=== PATIENT | female | born 1935 | race Caucasian/White ===

== ENCOUNTER 2019-05-26 07:10 | Day surgery (SDC) | payer MEDICARE ==
[2019-05-25 16:06] LABS: BASOPHILS # (AUTO) 0.1 X10'3 (0-0.2); BASOPHILS % (AUTO) 0.6 % (0-1); EOSINOPHILS # (AUTO) 0.1 X10'3 (0-0.9); EOSINOPHILS % (AUTO) 1.2 % (0-6); HEMATOCRIT 30.6 % (35.0-45.0); HEMOGLOBIN 9.9 g/dl (12.0-16.0); LYMPHOCYTES # (AUTO) 0.9 X10'3 (1.1-4.8); LYMPHOCYTES % (AUTO) 10.6 % (21-51); MEAN CORPUSCULAR HEMOGLOBIN 30.3 PG (27.0-31.0); MEAN CORPUSCULAR HGB CONC 32.4 g/dL (33.0-36.5); MEAN CORPUSCULAR VOLUME 93.5 FL (78-98); MEAN PLATELET VOLUME 9.3 FL (7.4-10.4); MONOCYTES # (AUTO) 0.9 X10'3 (0-0.9); MONOCYTES % (AUTO) 10.8 % (2-12); NEUTROPHILS # (AUTO) 6.3 X10'3 (1.8-7.7); NEUTROPHILS % (AUTO) 76.8 % (42-75); PLATELET COUNT 304 X10'3 (140-440); RED BLOOD COUNT 3.28 X10'6 (4.20-5.60); RED CELL DISTRIBUTION WIDTH 16.1 % (11.5-14.5); WHITE BLOOD COUNT 8.1 X10'3 (4.5-11.0)
[2019-05-25 16:13] LABS: ALBUMIN 2.9 G/DL (3.4-5.0); ANION GAP 1 (8-16); BLOOD UREA NITROGEN 22 MG/DL (7-18); BUN/CREATININE RATIO 16.1 (6.6-38.0); CALCIUM 8.6 MG/DL (8.5-10.1); CHLORIDE 104 MMOL/L (99-107); CREATININE 1.37 MG/DL (0.40-0.90); GLUCOSE 86 MG/DL (70-104); POTASSIUM 4.1 MMOL/L (3.5-5.1); SODIUM 143 MMOL/L (135-145); TOTAL CARBON DIOXIDE 37.7 MMOL/L (24-32); eGFR 37 ML/MIN
[~2019-05-26] VITALS: Ht 165.1 cm; Wt 106.8 kg
[~2019-05-26 07:10] MED LIST: ALBU8.5H8 INH; ASPI-611 PO; FOLI1TAB50 PO; LISI40TA4 PO; METO-411 PO; OMEG500C3 PO; OMEP40CA13 PO; OXYB5TAB16 PO; PARO10TA4 PO; TRIA1CAP6 PO
[2019-05-26] MEDS ORDERED: diphenhydrAMINE 25mg capsule PO ONE (07:45)
[2019-05-26] MEDS ORDERED: morphine 10mg/ml inj. IV ONE (07:45)
[2019-05-26] MEDS ORDERED: MIDAZolam 1mg/ml 10ml vial IV ONE (07:45)
[2019-05-26] MEDS ORDERED: LORazepam 0.5 MG tablet PO ONE (07:45)
[2019-05-26] MEDS ORDERED: normal saline 1000ml 1,000 ML IV SCH (07:45)
[2019-05-26] MEDS ORDERED: amiodarone in dextrose, iso-osm 150mg/100ml bag IV ONE (07:45)
[2019-05-26] MEDS ORDERED: atropine 0.1mg/ml 10ml syringe IV ONE (07:45)
== END 2019-05-26 09:50 | disposition home or self-care (01) ==
LOC: SSTAY O 07:10
PROVIDERS: ATTEND Internal Medicine Cardiovascular Disease
DX: I48.0 Paroxysmal atrial fibrillation (principal); Z53.8 Procedure and treatment not carried out for other reasons; I13.0 Hypertensive heart and chronic kidney disease with heart failure and stage 1 through stage 4 chronic kidney disease, or unspecified chronic kidney disease; I50.9 Heart failure, unspecified; N18.9 Chronic kidney disease, unspecified; J44.9 Chronic obstructive pulmonary disease, unspecified; G47.30 Sleep apnea, unspecified; I35.8 Other nonrheumatic aortic valve disorders; E66.3 Overweight; Z68.39 Body mass index [BMI] 39.0-39.9, adult; Z79.899 Other long term (current) drug therapy; Z98.890 Other specified postprocedural states; Z72.89 Other problems related to lifestyle; Z88.0 Allergy status to penicillin; Z88.8 Allergy status to other drugs, medicaments and biological substances; Z88.2 Allergy status to sulfonamides
CPT/HCPCS: 36415; 80048; 85025; 85610; 93005

== ENCOUNTER 2022-09-17 06:06 | Day surgery (SDC) | payer MEDICARE ==
[2022-09-16 13:04] LABS: LYMPHOCYTES # (AUTO) 1.1 X10'3 (1.1-4.8); RED CELL DISTRIBUTION WIDTH 18.9 % (11.5-14.5); WHITE BLOOD COUNT 9.5 X10'3 (4.5-11.0)
[2022-09-16 13:05] LABS: BASOPHILS % (AUTO) 0.4 % (0-1); EOSINOPHILS # (AUTO) 0.4 X10'3 (0-0.9); EOSINOPHILS % (AUTO) 4.7 % (0-6); HEMATOCRIT 51.1 % (35.0-45.0); HEMOGLOBIN 16.1 g/dl (12.0-16.0); LYMPHOCYTES % (AUTO) 11.9 % (21-51); MEAN CORPUSCULAR HEMOGLOBIN 27.1 PG (27.0-31.0); MEAN CORPUSCULAR HGB CONC 31.5 g/dL (33.0-36.5); MEAN CORPUSCULAR VOLUME 86.2 FL (78-98); MONOCYTES # (AUTO) 0.7 X10'3 (0-0.9); MONOCYTES % (AUTO) 6.8 % (2-12); NEUTROPHILS # (AUTO) 7.3 X10'3 (1.8-7.7); NEUTROPHILS % (AUTO) 76.2 % (42-75); PLATELET COUNT 681 X10'3 (140-440); RED BLOOD COUNT 5.93 X10'6 (4.20-5.60)
[2022-09-16 13:18] LABS: APTT 31 SECONDS (22-32)
[2022-09-16 13:20] LABS: ALANINE AMINOTRANSFERASE 16 U/L (12-78); ALBUMIN 3.4 G/DL (3.4-5.0); ALBUMIN/GLOBULIN RATIO 1.1 (1.1-1.5); ALKALINE PHOSPHATASE 73 IU/L (46-116); ANION GAP 6 (8-16); ASPARTATE AMINO TRANSFERASE 18 U/L (10-37); BILIRUBIN,TOTAL 0.7 MG/DL (0.1-1.0); BLOOD UREA NITROGEN 28 MG/DL (7-18); BUN/CREATININE RATIO 16.8 (10.0-20.0); CALCIUM 8.8 MG/DL (8.5-10.1); CHLORIDE 104 MMOL/L (99-107); CREATININE 1.67 MG/DL (0.40-0.90); GLUCOSE 85 MG/DL (70-104); POTASSIUM 4.4 MMOL/L (3.5-5.1); SODIUM 146 MMOL/L (135-145); TOTAL CARBON DIOXIDE 36.2 MMOL/L (24-32); TOTAL PROTEIN 6.5 G/DL (6.4-8.2); eGFR 29 ML/MIN
[2022-09-16 13:38] LABS: ANISOCYTOSIS 2+; LARGE PLATELETS FEW; PLATELET ESTIMATE INCREASED
[~2022-09-17] VITALS: Ht 162.6 cm; Wt 101.3 kg
[2022-09-17] VITALS (12 sets, daily range): BP systolic 132–144; BP diastolic 58–69
[~2022-09-17 06:06] MED LIST changes: +ALBU8.5H17 INH; -ALBU8.5H8 INH; +LISI40TA13 PO; -LISI40TA4 PO; -OMEP40CA13 PO; +OMEP40CA21 PO; -TRIA1CAP6 PO; +TRIA1CAP88 PO
[2022-09-17] MEDS ORDERED: acetylcysteine 200 MG/ml 4ml vial PO PRN (06:19)
[2022-09-17] MEDS ORDERED: LORazepam 0.5 MG tablet PO PRN (06:20)
[2022-09-17] MEDS ORDERED: normal saline 1,000 ML IV SCH (06:20)
[2022-09-17] MEDS ORDERED: diphenhydrAMINE 25mg capsule PO PRN (06:20)
[2022-09-17] MEDS ORDERED: MONT-40 PO (06:51)
[2022-09-17] MEDS ORDERED: SOLI5TAB8 PO (06:51)
[2022-09-17] MEDS ORDERED: SOTA80TA73 PO ×2 (06:51)
[2022-09-17] MEDS ORDERED: APIX5TAB3 PO (06:51)
[2022-09-17] MEDS ORDERED: POTA-205 PO (06:51)
[2022-09-17] MEDS ORDERED: FURO40TA4 PO (06:51)
[2022-09-17] MEDS ORDERED: CHOL20004 PO (06:52)
[2022-09-17] MEDS ORDERED: TIOT4MIS5 (06:52)
[2022-09-17] MEDS ORDERED: hydrocortisone sod succ/PF 100mg/2ml inj. IV ONE (07:00)
[2022-09-17] MEDS ORDERED: diphenhydrAMINE 50 mg/ml inj IV ONE (07:00)
[2022-09-17] MEDS ORDERED: famotidine/PF 10 mg/ml inj IV ONE (07:00)
[2022-09-17] MEDS ORDERED: LIDOcaine 1% (10mg/ml) 2ml vial ONE (07:22)
[2022-09-17] MEDS ORDERED: midazolam 1 mg/ML 2ml injection ONE (07:22)
[2022-09-17] MEDS ORDERED: verapamil 2.5 mg/ml inj IV ONE (07:22)
[2022-09-17] MEDS ORDERED: fentaNYL/PF 50MCG/1 ML 2ML syringe ONE (07:22)
[2022-09-17] MEDS ORDERED: nitroGLYCERIN-Tridil 50MG/D5W 250 ML IV ONE (07:22)
[2022-09-17] MEDS ORDERED: heparin 1,000unit/ml 10ml vial 10 ML ONE (07:23)
[2022-09-17] MEDS ORDERED: iohexol 350 MG/ML 50ML vial IV ONE (07:23)
[2022-09-17] MEDS ORDERED: iohexol 350MG/ML 100ml bottle IV ONE ×2 (07:23→08:44)
[2022-09-17] MEDS ORDERED: SODIUM BICARBONATE 150MEQ IN D5W 1,000 ML IV ONE (07:25)
[2022-09-17 08:57] LABS: ISTAT HGB ART 17.7 g/dl (12.0-16.0); ISTAT Hct ART 52 %PCV (35-45); ISTAT O2 SATURATION ARTERIAL 98 % (95-98); ISTAT SOURCE ART
[2022-09-17] MEDS ORDERED: HYDROcodone/acetaminophen 10/325mg tab PO PRN (09:45)
[2022-09-17] MEDS ORDERED: HYDROcodone/acetaminophen 5mg/325mg tablet PO PRN (09:45)
[2022-09-17 10:31] LABS: ISTAT Hct MIX 49 %PCV (35-45); ISTAT O2 SATURATION MIX VENOUS 82 % (60-80); ISTAT SOURCE VEN
[2022-09-18] MEDS ORDERED: SODIUM BICARB 150mEq/D5W 1L 999 ML IV SCH ×2 (06:20)
== END 2022-09-17 14:00 | disposition home or self-care (01) ==
LOC: SSTAY O 06:06
PROVIDERS: ATTEND Internal Medicine Cardiovascular Disease
DX: I13.0 Hypertensive heart and chronic kidney disease with heart failure and stage 1 through stage 4 chronic kidney disease, or unspecified chronic kidney disease (principal); I50.32 Chronic diastolic (congestive) heart failure; N18.9 Chronic kidney disease, unspecified; I47.1 Supraventricular tachycardia; I48.0 Paroxysmal atrial fibrillation; G47.30 Sleep apnea, unspecified; E66.3 Overweight; Z68.38 Body mass index [BMI] 38.0-38.9, adult; J44.9 Chronic obstructive pulmonary disease, unspecified; I35.1 Nonrheumatic aortic (valve) insufficiency; Z79.01 Long term (current) use of anticoagulants; Z79.899 Other long term (current) drug therapy; Z79.82 Long term (current) use of aspirin; Z88.2 Allergy status to sulfonamides; Z88.0 Allergy status to penicillin; Z91.041 Radiographic dye allergy status; Z98.890 Other specified postprocedural states; Z72.89 Other problems related to lifestyle; Z82.49 Family history of ischemic heart disease and other diseases of the circulatory system
CPT/HCPCS: 36415; 76937; 80053; 82803; 85014; 85025; 85610; 85730; 93005; 93460; 99152; 99153; A6258; J1200; J1644; J1720; J2250; J3010; J3490; J7030; Q9967; 85008; A4615; A6402; C1725; C1751; C1894

== ENCOUNTER 2025-01-27 08:11 | Day surgery (SDC) | payer MEDICARE ==
[2025-01-27] VITALS (7 sets, daily range): BP systolic 106–119; BP diastolic 49–61; PULSE 63–75; RESP 15–21; TEMP 98.5; O2SAT 94–100
[~2025-01-27] VITALS: Ht 157.5 cm; Wt 76.7 kg
[~2025-01-27 08:11] MED LIST changes: -ALBU8.5H17 INH; +ALBU8HFA IH; +DOCUMENT DATE & TIME OF BETA-BLOCKER PO ONE; +EMPA10TA PO; +FOLI1TAB27 PO; -FOLI1TAB50 PO; +FURO20TA4 PO; -LISI40TA13 PO; -METO-411 PO; +METO25TA6 PO; +MIDO5TAB4 PO; +MULT-1249 PO; -OMEG500C3 PO; -OMEP40CA21 PO; -OXYB5TAB16 PO; +PANT40TA54 PO; -PARO10TA4 PO; +POTA-205 PO; +TACR30OI4 TOP; -TRIA1CAP88 PO; +ringers solution, lacted 1,000 ML IV SCH; +simethicone 40mg/0.6ml oral drops 15ml PO ONE
--- NOTE | 2025-01-27 09:03 | ELECTROCARDIOGRAPH REPORT ---
[facility] Test Date: 2025-01-27 Test Time: 09:00:56 Pat Name: DALILA ROSE Department: [facility] Patient ID: [facility]-[id number] Room: Gender: F [employer] Operations Associate: erwin : 1935 Requested By: ROSA THOMPSON Order Number: [id number] Reading MD: Dr. CLARICE Quinonez Measurements Intervals [place] Rate: 76 P: 248 IA: 223 QRS: -72 QRSD: 120 T: 52 QT: 440 QTc: 495 Interpretive Statements Sinus or ectopic atrial rhythm Prolonged IA interval Left anterior fascicular block Probable left ventricular hypertrophy Electronically Signed On 01-27-2025 12:58:[address] CLARICE Quinonez Please click the below link to view image of tracing.
[2025-01-27] MEDS ORDERED: propofol 10mg/ml 20ml vial IV ONE (10:03)
--- NOTE | 2025-01-31 10:34 | PATHOLOGY REPORT ---
[facility] [address] [place] [address] SURGICAL PATHOLOGY REPORT CaseNumber: [id number] Surgeon:Myles Rizo M.D. CLINICAL INFORMATION CLINICAL INFORMATION: Not provided. DIAGNOSIS DIAGNOSIS: COLON, SIGMOID; BIOPSY - HYPERPLASTIC POLYP. MICROSCOPIC DESCRIPTION MICROSCOPIC DESCRIPTION: Performed. GROSS DESCRIPTION GROSS DESCRIPTION: Received in a container of formalin labeled with the patient's name, number, and "sigmoid polyp" are two pieces of [place] tissue 0.3 and 0.7 x 0.5 x 0.3 cm. The larger specimen is bisected. The specimen is entirely submitted as A1. The time at which the specimen was removed was 1011. The time at which the specimen was placed in formalin was 1012. Electronically signed by: Jonah Galan, 01/31/2025 9:54:00 AM
== END 2025-01-27 11:39 | disposition home or self-care (01) ==
LOC: PAS 08:11
PROVIDERS: ATTEND Internal Medicine Gastroenterology
DX: D50.9 Iron deficiency anemia, unspecified (principal); K63.5 Polyp of colon; I44.4 Left anterior fascicular block; R94.31 Abnormal electrocardiogram [ECG] [EKG]; I11.0 Hypertensive heart disease with heart failure; I50.9 Heart failure, unspecified; J44.9 Chronic obstructive pulmonary disease, unspecified; G47.33 Obstructive sleep apnea (adult) (pediatric); Z79.82 Long term (current) use of aspirin; Z79.899 Other long term (current) drug therapy; Z90.49 Acquired absence of other specified parts of digestive tract; Z90.89 Acquired absence of other organs; Z98.890 Other specified postprocedural states; Z88.0 Allergy status to penicillin; Z88.2 Allergy status to sulfonamides; Z91.041 Radiographic dye allergy status
CPT/HCPCS: 45385; 82948; 93005; A4615; A4620; J2704; J7120; Z7512; Z7610